=== PATIENT | female | born 1970 | race Caucasian/White ===

== ENCOUNTER → 2016-08-18 | Outpatient (CLI) | payer OTHER ==
--- NOTE | 2016-08-18 18:50 | MR ---
EXAMINATION TYPE: MR thoracic spine wo con DATE OF EXAM: 08/18/2016 6:35 PM COMPARISON: NONE HISTORY: Postural kyphosis of thoracolumbar, chest numbness, rib pain, LBP/numbness radiating down maria elena th legs, scoliosis Standard multiplanar, multisequence MRI departmental protocol FINDINGS: There is a levoscoliotic curvature centered at the L2 vertebral body level which is stable from the p revious lumbar spine MRI dated 11/21/2014. 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 Remaining disc spaces are preserved. Remaining vertebral body height is preserved. No evidence of dis c herniation or canal stenosis. Mild foraminal encroachment at T11-T12 bilaterally. 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 No disc herniations or canal stenosis at any of the visualized levels. No abnormal signal within the spinal cord or visualized paraspinal soft tissues. 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 Mild bilateral foraminal encroachment T11-T12. EXAMINATION TYPE: MR lumbar spine wo con DATE OF EXAM: 08/18/2016 6:35 PM COMPARISON: 11/21/2014 HISTORY: Postural kyphosis of thoracolumbar, chest numbness, rib pain, LBP/numbness radiating down maria elena th legs, scoliosis TECHNIQUE: T1 and T2 axial and sagittal images of the lumbar spine are submitted. FINDINGS: There is no abnormal signal seen within the visualized spinal cord or paraspinal soft tissu es. 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 At L1-2 there is no disc herniation or canal stenosis. No foraminal encroachment. At L2-3 there is no disc herniation or canal stenosis. No foraminal encroachment. There is resolution of a small synovial cyst along the outer margin of the right facet joint posteriorly compared to the previous exam. At L3-4 there is no disc herniation or canal stenosis. No foraminal encroachment At L4-5 there is mild degenerative disc disease with annular tear and central disc bulging which is s table. Mild hypertrophic change of the facets. Neural foramina patent. No Canal stenosis. At L5-S1 there is no disc herniation or canal stenosis. No foraminal encroachment IMPRESSION: 1. Stable levoscoliosis secondary to butterfly vertebral body T11. Mild degenerative disc disease L4- L5 with annular tear and central disc bulge is stable with no significant interval change.
== END | disposition home or self-care (01) ==
LOC: RADMRIMAIN 16:59
PROVIDERS: ATTEND Family Medicine
DX: M46.84 Other specified inflammatory spondylopathies, thoracic region (principal); M51.26 Other intervertebral disc displacement, lumbar region; M51.36 Other intervertebral disc degeneration, lumbar region
CPT/HCPCS: 72146; 72148

== ENCOUNTER → 2018-04-04 | Outpatient (CLI) | payer MEDICARE ==
--- NOTE | 2018-04-04 11:39 | BD ---
EXAMINATION TYPE: Axial Bone Density DATE OF EXAM: 04/04/2018 COMPARISON: NONE CLINICAL HISTORY: Osteoporosis Height: 61 IN Weight: 165 LBS FRAX RISK QUESTIONS: Secondary Osteoporosis: 3. Menopause before 45: YES AGE 44 Current Tobacco Use: YES RISK FACTORS HISTORY OF: Family History of Osteoporosis: YES MOTHER , 5 AUNTS Active: MODERATE Postmenopausal woman: AGE 44 Frequent falls: YES NO FEELING IN LEGS MEDICATIONS: Additional Medications: CALCIUM, VIT D, LISINOPRIL, NORCO, GABAPENTIN FLEXERIL EXAM MEASUREMENTS: Bone mineral densitometry was performed using the [employer] System. Bone mineral density as measured about the Lumbar spine is: ----- L1-L4(G/cm2): 1.172 T Score Values are as follows: ----- L2: -0.8 ----- L3: 0.2 ----- L4: 0.3 ----- L1-L4: -0.1 Bone mineral density BASELINE Bone mineral density about the R hip (g/cm2): 0.871 Bone mineral density about the L hip (g/cm2): 0.883 T Score values are as follows: -----R Neck: -1.2 -----L Neck: -1.1 -----R Total: -0.8 -----L Total: -0.7 Bone mineral density BASELINE IMPRESSION: Normal (Values between +1 and -1 indicate normal bone mass). Consider repeating this study in 5 year s or sooner if there is some new clinical indication. NOTE: T-SCORE=SD OF THE YOUNG ADULT MEAN.
== END ==
LOC: RADBDWWP 10:27
PROVIDERS: ATTEND Family Medicine
DX: M89.9 Disorder of bone, unspecified (principal); N95.1 Menopausal and female climacteric states
CPT/HCPCS: 77080

== ENCOUNTER → 2022-11-10 | Outpatient (CLI) | payer MEDICARE ==
--- NOTE | 2022-11-10 18:34 | BD ---
EXAMINATION TYPE: Axial Bone Density DATE OF EXAM: 11/10/2022 CLINICAL HISTORY: 52 years old Female. ICD-10 CODE: G89.4 CHRONIC PAIN Height: 5 ft 2 in Weight: 164 FRAX RISK QUESTIONS: Alcohol (3 or more units per day): no Family History (Parent hip fracture): yes Glucocorticoids (More than 3mos): yes (Ex: prednisone, prednisolone, methylprednisolone, dexamethasone, and hydrocortisone). History of Fracture in Adulthood: no Secondary Osteoporosis: 1. Type 1 Diabetes: no 2. Hyperthyroidism: no 3. Menopause before 45: yes 4. Malnutrition: no 5. Chronic liver disease: no Rheumatoid Arthritis: no Current Tobacco Use: no RISK FACTORS HISTORY OF: Surgery to Spine/Hip(right/left)/Wrist (right/left): no Family History of Osteoporosis: yes Active: no Diet low in dairy products/other sources of calcium: no Postmenopausal woman: yes Take estrogen and/or progesterone medications: no Lost more than 2 inches in height since high school: no Frequent falls: yes Poor Health: fair Hyperparathyroidism: no Adrenal Insufficiency: no MEDICATIONS: Additional Medications: arthritis meds, lisinopril, cholesterol meds, hydrocodone, muscle relaxer Additional History: EXAM MEASUREMENTS: Bone mineral densitometry was performed using the [employer] System. Bone mineral density as measured about the Lumbar spine is: ----- L1-L4(G/cm2): 1.114 T Score Values are as follows: ----- L1: -0.5 ----- L2: -0.9 ----- L3: -0.3 ----- L4: -0.7 ----- L1-L4: -0.5 Z Score Values are as follows: ----- L1: -0.3 ----- L2: -0.8 ----- L3: -0.2 ----- L4: -0.6 ----- L1-L4: -0.4 Bone mineral density has: decreased -4.9 % since study of: 2018 Bone mineral density about the R hip (g/cm2): 0.846 Bone mineral density about the L hip (g/cm2): 0.869 T Score values are as follows: -----R Neck: -1.4 -----L Neck: -1.2 -----R Total: -1.0 -----L Total: -1.1 Z Score values are as follows: -----R Neck: -0.8 -----L Neck: -0.6 -----R Total: -0.8 -----L Total: -0.9 Bone mineral density has: decreased -4.9 % since study of: 2018 FRAX%s: The graph provided illustrates a 4.4 % chance for a major osteoporotic fx and a 0.3 % chance for the hips probability for fx in 10 years time. IMPRESSION: Osteopenia (T Score between -2.5 and -1). There is slightly increased risk of fracture and the patient may be considered for treatment. Re-Screen 2-5 years. NOTE: T-SCORE=SD OF THE YOUNG ADULT MEAN.
--- NOTE | 2022-11-11 07:49 | MM ---
Reason for Exam: Screening (asymptomatic). Last mammogram was performed 6 year(s) and 11 month(s) ago. Patient History: Menarche at age 13. First Full-Term at age 30. Postmenopausal. Patient used Hormonal Contraceptives for 2 years. Maternal aunt had breast cancer. Risk Values: Liz 5 year model risk: 1.2%. NCI Lifetime model risk: 10.8%. Prior Study Comparison: 10/23/2010 Bilateral Screening Mammogram, [facility]. 10/28/2010 Left Diagnostic Mammogram, [facility]. 12/12/2015 Bilateral Screening Mammogram, [facility]. Tissue Density: The breast tissue is heterogeneously dense. This may lower the sensitivity of mammography. Findings: Analyzed By CAD. No new suspicious mass or architectural distortion within either breast. No suspicious calcifications within the left breast. There are loosely grouped punctate calcifications within the lower inner right breast at middle depth. Overall Assessment: Incomplete: need additional imaging evaluation, BI-RAD 0 Management: Diagnostic Mammogram of the right breast. A clinical breast exam by your physician is recommended on an annual basis and results should be correlated with mammographic findings. [facility] will attempt to contact patient to return for supplemental views and ultrasound if indicated. Electronically signed and approved by: Davis Vu D.O.
== END | disposition home or self-care (01) ==
LOC: RADBDWWP 15:46
PROVIDERS: ATTEND Internal Medicine Geriatric Medicine
DX: Z12.31 Encounter for screening mammogram for malignant neoplasm of breast (principal); Z78.0 Asymptomatic menopausal state; G89.4 Chronic pain syndrome; Z80.3 Family history of malignant neoplasm of breast
CPT/HCPCS: 77067; 77080

== ENCOUNTER → 2022-11-12 | Outpatient (CLI) | payer MEDICARE ==
--- NOTE | 2022-11-12 12:16 | MM ---
Reason for Exam: Additional evaluation requested from abnormal screening. Last screening mammogram was performed less than 1 month ago. Patient History: Menarche at age 13. First Full-Term at age 30. Postmenopausal. Patient used Hormonal Contraceptives for 2 years. Maternal aunt had breast cancer. Risk Values: Liz 5 year model risk: 1.2%. NCI Lifetime model risk: 10.8%. Prior Study Comparison: 10/23/2010 Bilateral Screening Mammogram, [facility]. 10/28/2010 Left Diagnostic Mammogram, [facility]. 12/12/2015 Bilateral Screening Mammogram, [facility]. 11/10/2022 Bilateral MG screening mammo w CAD, [facility]. Tissue Density: Right: There are scattered fibroglandular densities. Findings: Analyzed By CAD. Magnification views have 2 adjacent heterogenous calcifications with a somewhat more distant benign-appearing round calcification. These however are an interval changed from prior study. Short-term follow-up is recommended with magnification compression views.. No suspicious groups of microcalcifications, spiculated or lobular masses, architectural distortion or other secondary signs of malignancy are mammographically apparent. Overall Assessment: Probably benign, BI-RAD 3 Management: Diagnostic Mammogram of the right breast in 6 months. A negative mammogram report should not preclude additional follow up of suspicious palpable abnormalities. Patient should continue monthly self breast exam. A clinical breast exam by your physician is recommended on an annual basis and results should be correlated with mammographic findings. Electronically signed and approved by: Stephan Flores D.O. Radiologis
== END | disposition home or self-care (01) ==
LOC: RADMAMWWP 08:41
PROVIDERS: ATTEND Internal Medicine Geriatric Medicine
DX: R92.8 Other abnormal and inconclusive findings on diagnostic imaging of breast (principal); R92.1 Mammographic calcification found on diagnostic imaging of breast; Z80.3 Family history of malignant neoplasm of breast; Z78.0 Asymptomatic menopausal state
CPT/HCPCS: 77065; G0279; 77061

== ENCOUNTER → 2023-05-05 | Outpatient (CLI) | payer MEDICARE ==
--- NOTE | 2023-05-06 09:10 | US ---
EXAMINATION TYPE: US arterial LE single level DATE OF EXAM: 05/05/2023 2:40 PM CLINICAL INDICATION: Female, 52 years old with history of M79.671 PAIN IN R FOOT; right foot pain for 3 months. weakness bilateral legs History of: Smoker: previous Hypertension: yes Diabetic: no Hyperlipidemia: yes TIA/CVA: no Previous Vascular Surgery: no CAD: WI: no Vascular Ulcers: no Claudication: no Gangrene: no Doppler Waveforms: Right: Multiphasic, monophasic in the digit. Left: Multiphasic, monophasic in the digit. Right Brachial Pressure: 118 Left Brachial Pressure: 115 Ankle-Brachial Indices: Right: 1.09 Left: 1.05 Toe Brachial Indices: Right: 0.85 Left: 0.90 IMPRESSION: Normal ankle-brachial indices bilaterally.
== END | disposition home or self-care (01) ==
LOC: RADUSWWP 13:46
PROVIDERS: ATTEND Family Medicine
DX: M79.671 Pain in right foot (principal)
CPT/HCPCS: 93922

== ENCOUNTER → 2023-05-11 | Outpatient (CLI) | payer MEDICARE ==
--- NOTE | 2023-05-11 09:34 | MM ---
Reason for Exam: Follow-up at short interval from prior study. Last screening mammogram was performed 6 month(s) ago. Patient History: Menarche at age 13. First Full-Term at age 30. Postmenopausal. Patient used Hormonal Contraceptives for 2 years. Maternal aunt had breast cancer. Risk Values: Liz 5 year model risk: 1.2%. NCI Lifetime model risk: 10.8%. Prior Study Comparison: 12/12/2015 Bilateral Screening Mammogram, [facility]. 11/10/2022 Bilateral MG screening mammo w CAD, [facility]. 11/12/2022 Right MG 3D work up w/cad RT, [facility]. Tissue Density: Right: The breast tissue is heterogeneously dense. This may lower the sensitivity of mammography. Findings: Analyzed By CAD. Calcifications inner upper left breast remain stable. Continued follow-up is advised. No new calcifications seen or mass is evident. Overall Assessment: Probably benign, BI-RAD 3 Management: Diagnostic Mammogram of both breasts in 6 months. . Results were given to the patient verbally at the time of exam. Patient should continue monthly self-breast exams. A clinical breast exam by your physician is recommended on an annual basis. This exam should not preclude additional follow-up of suspicious palpable abnormalities. Note on Liz scores and lifetime risk: 1. A Liz score greater than 3% is considered moderate risk. If this is the case, consider specialist referral to assess eligibility for a risk reducing agent. 2. If overall lifetime risk for the development of breast cancer is 20% or higher, the patient may qualify for future screening with alternating mammogram and breast MRI. Electronically signed and approved by: Munir Cornejo M.D. Radiologis
== END | disposition home or self-care (01) ==
LOC: RADMAMWWP 08:36
PROVIDERS: ATTEND Family Medicine
DX: R92.331 Mammographic heterogeneous density, right breast (principal); Z78.0 Asymptomatic menopausal state; Z80.3 Family history of malignant neoplasm of breast
CPT/HCPCS: 77061; 77065

== ENCOUNTER → 2023-07-08 | Outpatient (CLI) | payer MEDICARE ==
--- NOTE | 2023-07-08 19:21 | CTL ---
EXAMINATION TYPE: CT Low Dose Lung DATE OF EXAM ORDERED: 07/08/2023 HISTORY: 53-year-old female Z1 2.2, Z87.91, former smoker with 20 pack-year history. Lung cancer scre ening CT DLP: 93.[address] CTDI: 2.9 mGy Automated exposure control for dose reduction was used. SCREENING VISIT: None COMPARISON: None TECHNIQUE: Low dose computed tomography scan was performed through the chest with coronal and sagitta l reconstructions. CT DIAGNOSTIC QUALITY: Satisfactory FINDINGS: Heart normal size without pericardial effusion. Aorta normal caliber with conventional arch vessel branching anatomy. No thoracic lymphadenopathy by CT size criteria. No consolidation or pleural effusion. 4 mm subpleural pulmonary nodule lateral left lower lobe, axial image 147 on baseline screening. 3 mm anterior left upper lobe pulmonary nodule, axial image 65. Small hiatal hernia. Visualized upper abdomen shows no gross abnormality. 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 IMPRESSION: 1. LungsRADS 2, benign. A couple pulmonary nodules measuring up to 4 mm on baseline screening. 2. Small hiatal hernia. 3. 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 CT LUNG RAD AND CT CHEST RECOMMENDATION: Lung-Rad 2 Benign Appearance or Behavior: Continue annual sc reening with LDCT in 12 months. S Modifier (other clinically significant findings): None
== END | disposition home or self-care (01) ==
LOC: RADCTMAIN 09:32
PROVIDERS: ATTEND Family Medicine
DX: Z12.2 Encounter for screening for malignant neoplasm of respiratory organs (principal); K44.9 Diaphragmatic hernia without obstruction or gangrene; R91.8 Other nonspecific abnormal finding of lung field; Z87.891 Personal history of nicotine dependence
CPT/HCPCS: 71271

== ENCOUNTER → 2023-09-15 | Outpatient (CLI) | payer MEDICARE ==
[2023-09-15 11:07] VITALS: BP 134/78; PULSE 81; RESP 15; TEMP 98.7
--- NOTE | 2023-09-15 14:38 | P.PAINPG ---
PQRS Measure Charge Sheet Comment: HISTORY OF PRESENT ILLNESS: A 53 yr old female as a referral from Dr Alicea presents today w severe and chronic mid to lower back pain x 15 yr secondary to DDD, spondylosis and facet arthropathy without myelopathy for evaluation. Pt states pain level is provoked at 6 /10 in intensity, constant, localized in the , predominantly axial, in character w occasional shooting pain towards the upper spine. Pain is provoked by sitting or leaning for periods > 20 min. Pain is alleviated by medications ([place] 10/325mg #[address] Alicea per MAPS, Celebrex), THC Gummies, Voltaren topical, PT in 2018, repositioning and rest . Oswestry axial pain score at 32. PMH: OA, R Trochanteric Bursitis, HTN, Hyperlipidemia, GERD, Vitamin B12 Deficiency, Vitamin D Deficiency PSH: Lumbar RFA (Apr 2022), LESIs, R shoulder arthroscopy x2, Uterine Ablation, Eustachian tubes SH: Hx of tobacco use, No ETOH abuse, THC Gummies use FH: Mo- Small Cell CA/ at age 67. Fa- AL/ at age 48. All: See list Meds: See list REVIEW OF ORGAN SYSTEMS: CONSTITUTIONAL: No fevers or chills. No recent weight loss. NEUROLOGICAL: + numbness and tingling along the distal extremities. No seizure disorders or headaches. MUSCULOSKELETAL: + pain PSYCHIATRIC: Denies current depression or suicidal thoughts. Physical Examinations : Constitutional : Cooperative , not in acute distress . Neurologic : Cranial nerve II to XII intact. No focal neurological deficits. Psychiatric : alert & oriented x 3. Matching mood & appropriate affect. Judgment & insight intact. Musculoskeletal : Cervical Spine Motor strength in the deltoid and biceps: Normal right side. Normal Left side Motor strength biceps and the wrist extensors: Normal right side . Normal left side Motor strength in the triceps muscle: Normal right side. Normal left side Deep tendon reflexes: Normal at the biceps. Normal at Brachioradialis. Normal at triceps Vertebral body tenderness to deep palpation over Cervical facet loading test: positive bilaterally Spurling test: positive bilaterally Neck distraction test: positive bilaterally Sulema sign: positive bilaterally Lumbar spine Motor strength lower extremities ,thigh and legs 5/5 Right side , 5/5 Left side Deep tendon reflexes : Normal Knee Jerk. Normal Ankle Jerk Vertebral body tenderness over Cunningham Test positive Lumbar facet Loading Test: positive Right / positive Left Range of motion of the lumbar spine Flexion 30 degrees, extension 10 degrees Straight Leg Raise test: Left/ Right positive at degrees Tessie test: positive right / positive left. Severe tenderness over the Sacroiliac joint on the Right / Left sides Gaenslen test: positive bilaterally Seated flexion test: positive bilaterally. Sacral spine : Severe tenderness over the Sacroiliac joint: right side / left side Range of motion: Flexion of the lumbar spine <60 degrees Range of motion: Extension of the lumba r spine <20 degrees Gaenslen's Test positive Tessie test: positive right side / left side Thigh Thrust Test Sacral Thrust Test Imaging: Lumbar x ray from 09/08/20 reviewed Assessment/ Plan : Lumbar DDD Recommendation of PT x 6 wks and MRI non contrast of the lumbar spine M51 .36 . All questions answered. I have spent greater than 30 minutes on patient care today. Dr Clark was available by phone for the evaluation of this patient. The time was used to review the medical records including relevant urine studies and Prescription history (MAPs), review of the available imaging, evaluation and examination of the patient, coordination of care with the medical staff and if applicable referring physicians, as well as creation of the medical record Controlled Substance Measures - Controlled Substance Measures Is patient prescribed a controlled substance at discharge?: No
== END ==
LOC: PNWHC3 09:42
PROVIDERS: ATTEND Specialist
DX: M70.61 Trochanteric bursitis, right hip (principal); G57.01 Lesion of sciatic nerve, right lower limb; M70.71 Other bursitis of hip, right hip; M51.36 Other intervertebral disc degeneration, lumbar region; M19.90 Unspecified osteoarthritis, unspecified site; I10 Essential (primary) hypertension; E78.5 Hyperlipidemia, unspecified; K21.9 Gastro-esophageal reflux disease without esophagitis; Z87.891 Personal history of nicotine dependence
CPT/HCPCS: 99211

== ENCOUNTER → 2023-10-11 | Outpatient (CLI) | payer MEDICARE ==
--- NOTE | 2023-10-11 11:39 | MR ---
EXAMINATION TYPE: MR lumbar spine wo con DATE OF EXAM: 10/11/2023 COMPARISON: 11/22/2007 HISTORY: Mid to low back pain into Right hip TECHNIQUE: T1 and T2 axial and sagittal images of the lumbar spine are submitted. FINDINGS: There is no abnormal signal seen within the visualized spinal cord or paraspinal soft tissu es. 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 Nerve root sleeve diverticulum on the right at T10- T11 and T11-T12. Scoliotic curvature noted. Mild loss of disc signal at L4-L5. Remaining levels demonstrate maintenance of disc signal. Tarlov's cyst at the S2 level At L1-2 there is no disc herniation or canal stenosis. No foraminal encroachment. At L2-3 there is no disc herniation or canal stenosis. Mild hypertrophic changes of the facets. Neuro foramina patent. At L3-4 there is no disc herniation or canal stenosis. Neural foramina patent. Mild hypertrophic face t arthropathy. At L4-5 there is mild degenerative disc disease. There is hypertrophic facet arthropathy but no canal stenosis. No discrete disc herniation. Minimal small broad-based disc bulging. At L5-S1 there is facet arthropathy with no disc herniation, canal stenosis, or foraminal encroachmen t. IMPRESSION: 1. Levoscoliosis with hemivertebrae at T11 similar to prior exam. 2. Multilevel facet arthropathy stable. No foraminal encroachment. 3. Mild degenerative disc disease and minimal broad-based disc bulging L4-L5 stable.
== END | disposition home or self-care (01) ==
LOC: RADMRIMAIN 10:19
PROVIDERS: ATTEND Specialist
DX: M51.36 Other intervertebral disc degeneration, lumbar region (principal); M47.816 Spondylosis without myelopathy or radiculopathy, lumbar region; M41.84 Other forms of scoliosis, thoracic region
CPT/HCPCS: 72148